=== PATIENT | male | born 1955 | race Caucasian/White ===

== ENCOUNTER 2023-03-19 10:49 | Emergency (ER) | payer OTHER, SELFPAY ==
[2023-03-19 10:52] VITALS: BP 170/94; PULSE 82; RESP 14; TEMP 36.7; O2SAT 97; BMI 27.4
--- NOTE | 2023-03-19 11:13 | ED_ITS ---
HPI - General Adult General Chief complaint: Upper Respiratory Symptoms Stated complaint: Covid+ feeling symptoms t-4 Time Seen by Provider: 03/19/23 11:04 Source: patient Mode of arrival: Ambulatory History of Present Illness HPI narrative: 67-year-old male who has had COVID symptoms for the past 4 days. He had COVID earlier this year and took Paxlovid and he states that it worked well for him. He states over the past 4 days his symptoms have not improved so he would like to try the Paxlovid once again. Related Data Previous Rx's Medication Instructions Recorded nirmatrelvir 300 mg (150 mg See Rx Instructions PO .COMPLEX 03/19/23 x2)-ritonavir 100 mg tablet,dose #30 ea pack (Paxlovid) Allergies Allergy/AdvReac Type Severity Reaction Status Date / Time Penicillins Allergy Verified 03/19/23 11:01 Review of Systems Constitutional Constitutional: Reports system reviewed and no additional complaints, except as documented Respiratory Respiratory: Reports system reviewed and no additional complaints, except as documented Patient History Social History Smoking Status: Unknown if ever smoked Smoking Status: Unknown if ever smoked alcohol intake frequency: holidays/special occasions only Substance Use Type: does not use Exam Initial Vital Signs Initial Vital Signs: Vital Signs Temperature 98.1 F 03/19/23 10:52 Pulse Rate 82 03/19/23 10:52 Respiratory Rate 14 03/19/23 10:52 Blood Pressure 170/94 H 03/19/23 10:52 Pulse Oximetry 97 03/19/23 10:52 Oxygen Delivery Method Room Air 03/19/23 10:52 Resp Effort & Inspection: normal respiratory effort Cardio Rate: regular rate Skin General: no rashes or lesions noted Neuro General: patient alert, patient awake and moves all extremities Course Vital Signs Vital signs: Vital Signs - 8 hr 03/19/23 10:52 Temperature 98.1 F Pulse Rate 82 Respiratory Rate 14 Blood Pressure 170/94 H Pulse Oximetry 97 Oxygen Delivery Method Room Air Medical Decision Making [facility] Narrative Medical decision making narrative: I will prescribe the patient Paxlovid. He is not hypoxic. Not tachypneic. He is not in respiratory distress. I did discuss his other medications with pharmacy and we did make dosing changes. Will discharge patient home with return precautions. Discharge Plan Departure Patient Disposition: Home Clinical Impression: COVID-19 Instructions: COVID-19 Activity Restrictions/Additional Instructions: A prescription for Paxlovid was sent to [facility]. Please start taking it as directed. I did discuss your other medications with our pharmacist. They recommend that you stop taking the atorvastatin while your on Paxlovid. You should half the dose of the amlodipine and you can continue to take your losartan like normal. Contact your primary doctor for follow-up. Prescriptions: New Paxlovid 300 mg (150 mg x 2)-100 mg tablets,dose pack See Rx Instructions .ROUTE .COMPLEX Qty: 30 0RF Rx Instructions: take TWO 150 mg tablets of nirmatrelvir with ONE 100 mg tablet of ritonavir twice daily for 5 days Stand Alone Forms: Patient Portal/API
== END 2023-03-19 11:31 | disposition home or self-care (01) ==
PROVIDERS: Emergency Provider Emergency Medicine
DX: U07.1 COVID-19 (principal)
CPT/HCPCS: 99281